=== PATIENT | female | born 1955 | race Caucasian/White ===

== ENCOUNTER 2018-11-29 22:24 | Emergency (ER) | payer OTHER ==
[~2018-11-29] VITALS: Ht 162.6 cm; Wt 67.1 kg
[2018-11-29 22:36] VITALS: Ht 162.6 cm; Wt 67.1 kg
[2018-11-30 00:36] VITALS: BP 109/71
== END 2018-11-30 00:36 | disposition home or self-care (01) ==
LOC: ED 22:24
DX: S16.1XXA Strain of muscle, fascia and tendon at neck level, initial encounter (principal); S09.8XXA Other specified injuries of head, initial encounter; R11.0 Nausea; V43.62XA Car passenger injured in collision with other type car in traffic accident, initial encounter; Y93.89 Activity, other specified; Y92.488 Other paved roadways as the place of occurrence of the external cause; Y99.8 Other external cause status